=== PATIENT | female | born 1995 | race Two or more races ===

== ENCOUNTER 2017-09-30 18:38 | Observation (INO) | payer SELFPAY ==
[~2017-09-30] VITALS: Ht 160 cm; Wt 63.5 kg
[2017-09-30] MEDS ORDERED: PROPOFOL 100 ML IV ONE (20:41)
[2017-09-30] MEDS ORDERED: ONDANSETRON HCL 4 MG/2 ML VIAL IV ONE (20:45)
[2017-09-30] MEDS ORDERED: PROPOFOL 10 MG/ML 20 ML IV ONE (20:45)
[2017-09-30] MEDS ORDERED: LIDOCAINE 2% (LOCAL ANESTH.) PF 5ml SDV ONE (20:53)
[2017-09-30 22:31] VITALS: BP 113/73
== END 2017-10-01 00:03 | disposition left against medical advice (07) | DRG 563 ==
LOC: ER 18:38 → OVERFLOW 18:39 → ER 10-01 00:03
PROVIDERS: ADMIT Anesthesiology; ATTEND Anesthesiology
DX: S43.014A Anterior dislocation of right humerus, initial encounter (principal); S00.81XA Abrasion of other part of head, initial encounter; F10.129 Alcohol abuse with intoxication, unspecified; V86.55XA Driver of 3- or 4- wheeled all-terrain vehicle (ATV) injured in nontraffic accident, initial encounter; Y93.89 Activity, other specified; Y92.89 Other specified places as the place of occurrence of the external cause; Y99.8 Other external cause status
CPT/HCPCS: 70450; 70486; 72040; 73020; 73030; 96374; 96375; 99291; G0378; J2405; J2704; J7030; J2001